=== PATIENT | male | born 1945 | race Caucasian/White ===

== ENCOUNTER → 2018-05-14 | Outpatient (CLI) | payer BC, OTHER ==
[~2018-05-14] VITALS: Ht 172.7 cm; Wt 63.6 kg
[~2018-05-14] MED LIST: AMIODARONE HCL100 MG PO; ASPIRIN325 PO; ATORVASTATIN CA40 MG PO; CARAFATE 1 GM TA1 G1 PO; CARISOPRODOL 3350 MG PO; CENTRUM SILVER1 EAC2 PO; COMPAZINE10 MG PO; CYMBALTA30 MG PO; DURAGESIC1 EAC4 TRANSDERM; ENTRESTO 24 MG1 EACH PO; FISH OIL 1,001000 M2 PO; FLOVENT HFA 4444 MCG INH; FOLIC ACID1 MG PO; HYDROCODON-ACE1 EAC5 PO; IBUPROFEN 200200 M1 PO; LIDOCAINE PAIN1 EACH TRANSLING; MAGOX 400400 MG PO; METFORMIN HCL500 MG PO; NORCO 5-325 TA1 EACH PO; OXYCONTIN10 M1 PO; PERCOCET PO; PLAVIX 75 MG TA75 M1 PO; PROAIR RESPICL90 MCG INH; PROBIOTIC1 EAC1 PO; PROTONIX40 M1 PO; SENNA S TABLET1 EACH PO; SYNTHROID75 MCG PO; TOPROL XL25 MG PO; TUMERSAID TABL1 EACH PO; VITAMIN D1000 UNI1 PO; VOLTAREN GEL 1100 G2 TOP
--- NOTE | ~2018-05-14 | HPC ---
[facility] [address] [place] [address] PAIN MANAGEMENT CONSULTATION Name: NAY CLEARY Room #: REG SATISH Love.#: [id number] Admission: 05/14/18 Attend Phys: August Wood MD Discharge: Date of : 45 Report #: [id number] THIS REPORT FOR: //name// CC: Dr. Michael Wood DATE OF SERVICE: 05/14/2018 REASON FOR VISIT: Followup visit for thoracic pain and metastatic carcinoma of the lung. HISTORY OF PRESENT ILLNESS: The patient returns to the clinic today complaining of pain at a level of 7/10 but at times high as at 10/10. The pain is located in the lower thoracic region just to the left of midline but at times will radiate around in a subcostal distribution. He describes the pain as a cramping, sharp, stabbing pain at times and had tenderness throughout his rib cage. He does get relief from his pain medication, hydrocodone, but it is intermittent and it does not work fast enough when he needs it. There is nearly every day episode of pain that is very severe that he finds that he is chasing with his hydrocodone. He has fortunately also found that co-analgesics ibuprofen and Cymbalta could be helpful for him. He must be cautious with ibuprofen due to his use of the blood thinner, Plavix. PQRS REVIEW: All medications reviewed and reconciled from the electronic medical record. He is on blood thinner, Plavix. He has a history of atrial fibrillation. He is not on Coumadin, the typical anticoagulants. He does not use tobacco, drinks alcohol a couple of times a week. Lives with his in a social setting. He has been losing some weight. His BMI declining now to a level of 21.3. He is trying to supplement where he can maintain weight in the face of cancer. He is on opioid medication and has signed an opioid agreement with our clinic and he is at low risk for addiction. He is supported by his who is here with him today. PHYSICAL EXAMINATION: GENERAL: He is a wonderful 73-year-old gentleman thoughtful and pleasant. VITAL SIGNS: Blood pressure 108/74, heart rate is 94, respirations 14 and BMI 21.3. MUSCULOSKELETAL: He has pain in the seating position and was lying on the bed when I came into the room. He has difficulty moving from supine to sitting and sitting to standing. CHEST: Clear to auscultation. CARDIAC: Rhythm is irregularly irregular. Palpation of the chest wall does not reveal any obvious palpable masses. There are in multiple areas of tenderness along the posterior chest wall and along the subcostal margin bilaterally. [address] [address] PAIN MANAGEMENT CONSULTATION Name: NAY CLEARY Room #: REG SATISH Love.#: [id number] Admission: 05/14/18 Attend Phys: August Wood MD Discharge: Date of : 45 Report #: [id number] of his pain is located around T7-T8. ABDOMEN: Soft. Bowel sounds are distant. EXTREMITIES: Free of edema. IMPRESSION: 1. Metastatic carcinoma of the lung. I do not have all of his records currently, but it is documented that there is some bony metastasis in the area of the spine. 2. Management of high risk medications under terms of written opioid agreement. PLAN: After much discussion and review of the difference subsets of pain medication, we have agreed to him using Cymbalta one daily, fentanyl 25 mcg patch for baseline, hydrocodone 5/325 for breakthrough, gabapentin, which he can use intermittently for neuropathic pain and although he is on Plavix a low dose of ibuprofen seems to provide substantial pain relief. He will watch carefully for any bleeding issues. Followup visit is scheduled in 1 week off of Plavix for an epidural injection, which was previously helpful. By: [id number] August Wood MD /nt
[2018-05-14 10:09] VITALS: BP 108/74
--- NOTE | 2018-05-14 12:12 | NUR ---
Pain Clinic Assessment: 1. History of Osteoarthritis: History of Rheumatoid Arthritis: NO 2. Height: 5 ft. 8 in. 172.7 cm. Weight: 140.2 lb. oz. 63.594 kg. Patient's BMI: 21.3 3. Vital Signs: BP: 108/74 Pulse: 94 Resp: 14 Temp: 02 Sat: 100 ECG Mon: 4. Pain Intensity: 7 5. Fall Risk: Dizziness: N Needs help standing or walking: N Fallen in the last 3 months: N Fall risk comments: 6. Patient on Blood Thinner: Clopidogrel Bisulf(Plavix 7. History of Hypertension: Y 8. Opioid Therapy greater than 6 weeks: Opiate Contract Signed: 9. Risk Assessment Tool Provided: 10. Functional Assessment Tool: 11. Recreational Drug Use: Unknown Drug Type: Tobacco Use: Unknown if Ever Smoked Tobacco Type: Amount or Packs/day: How Many Years: Alcohol Use: Yes Frequency: Special Occasions Quant: 2/YEAR
== END ==
LOC: PAIN 07:53
DX: C79.51 Secondary malignant neoplasm of bone (principal); C34.90 Malignant neoplasm of unspecified part of unspecified bronchus or lung; Z79.891 Long term (current) use of opiate analgesic; Z79.899 Other long term (current) drug therapy

== ENCOUNTER → 2018-05-21 | Outpatient (CLI) | payer BC, OTHER ==
[~2018-05-21] MED LIST changes: +DURAGESIC1 EACH TRANSDERM
--- NOTE | ~2018-05-21 | HPC ---
[facility] [address] [place] [address] PAIN MANAGEMENT CONSULTATION Name: NAY CLEARY Room #: REG SATISH FlorGaelScott.#: [id number] Admission: 05/21/18 ������������������ Attend Phys: August Wood MD Discharge: ������������������ Date of : 45 Report #: [id number] THIS REPORT FOR: //name// CC: Fabiano Wood DATE OF SERVICE: 05/21/2018 Followup visit for thoracic epidural injection. The patient was seen in the pain clinic just a few days ago. We had to take him off his Plavix in order to proceed with a thoracic epidural injection. At last visit, I started him on fentanyl patch and Cymbalta. Either one or the combination caused some confusion at times and night time disorientation. His took him off both. I have suggested today that he stay off the Cymbalta and will reduce the fentanyl patch to 12 mcg for baseline pain control as discussed at his previous visit. I spoke with Dr. Malloy who agreed to see him this afternoon, perhaps for blood work as well as fluids. His is concerned about his readiness for chemotherapy on Monday. PHYSICAL EXAMINATION: He appears slightly pale. His blood pressure is 126/78. There are no orthostatic changes. Heart rate is 104. He has marked tenderness along the mid thoracic spine and area of T4 through roughly T8. There is also pain that radiates around the costal margin. Chest is clear. Cardiac rhythm is regular. IMPRESSION: 1. Metastatic adenocarcinoma of the lung. 2. Thoracic radiculopathy. PROCEDURE: Thoracic epidural injection. He was taken to fluoroscopic suite, placed prone, skin prepped with ChloraPrep. Skin anesthetized over C6-C7. A 20-gauge Tuohy epidural needle advanced into the epidural space in the first attempt with loss of resistance. There was no blood or CSF aspirated. A 2 mL of 1% lidocaine and 80 mg of triamcinolone were injected. Needle was removed. He was observed in recovery room for about 45 minutes and discharged. Followup is planned immediately in Dr. Malloy's office. His will take him directly there. [address] [address] PAIN MANAGEMENT CONSULTATION Name: NAY CLEARY Room #: REG SATISH Muniz#: [id number] Admission: 05/21/18 ������������������ Attend Phys: August Wood MD Discharge: ������������������ Date of : 45 Report #: [id number] New prescriptions for lower dose fentanyl patch provided. ��������������������������������������������� ���������������������������������������� By: ��������������������������������������������� 1326 2300 August Wood MD /nt
[2018-05-21 12:04] VITALS: BP 135/83
[2018-05-21 12:05] VITALS: BP 126/78
--- NOTE | 2018-05-21 12:09 | NUR ---
Pain Clinic Assessment: 1. History of Osteoarthritis: History of Rheumatoid Arthritis: NO 2. Height: ft. in. cm. Weight: lb. oz. kg. Patient's BMI: 3. Vital Signs: BP: 126/78 Pulse: 104 Resp: 14 Temp: 02 Sat: 96 ECG Mon: 4. Pain Intensity: 8 5. Fall Risk: Dizziness: Y Needs help standing or walking: Y Fallen in the last 3 months: N Fall risk comments: 6. Patient on Blood Thinner: Clopidogrel Bisulf(Plavix 7. History of Hypertension: Y 8. Opioid Therapy greater than 6 weeks: Y Opiate Contract Signed: 9. Risk Assessment Tool Provided: 10. Functional Assessment Tool: 11. Recreational Drug Use: Unknown Drug Type: Tobacco Use: Unknown if Ever Smoked Tobacco Type: Amount or Packs/day: How Many Years: Alcohol Use: Yes Frequency: Quant:
== END | disposition home or self-care (01) ==
LOC: PAIN 07:06
DX: M54.14 Radiculopathy, thoracic region (principal); C34.90 Malignant neoplasm of unspecified part of unspecified bronchus or lung; G89.29 Other chronic pain; Z88.0 Allergy status to penicillin; Z79.82 Long term (current) use of aspirin; Z79.899 Other long term (current) drug therapy; Z98.890 Other specified postprocedural states